=== PATIENT | female | born 1980 | race Caucasian/White ===

== ENCOUNTER 2018-01-06 15:04 | Outpatient (CLI) | payer OTHER ==
--- NOTE | 2018-01-06 16:49 | ULT ---
RIGHT BREAST LIMITED ULTRASOUND: 01/06/18 Patient presents with an axillary palpable finding. The region of the palpable finding in the right a xilla was evaluated with ultrasound. No solid or cystic mass. No abnormal fluid collection. IMPRESSION: Unremarkable right axillary ultrasound in the region of palpable concern. If the patient develops any new palpable finding, followup ultrasound study of that region should be considered. Consider annual baseline screening mammography between now and age 40 depending upon risk factors. POS: OFF
== END 2018-01-06 15:05 | disposition home or self-care (01) ==
LOC: BICULT 15:04
PROVIDERS: ATTEND Family Medicine
DX: R22.9 Localized swelling, mass and lump, unspecified (principal)

== ENCOUNTER 2025-02-19 09:00 | Outpatient (CLI) | payer OTHER | END 2025-02-19 09:01 | disposition home or self-care (01) | LOC: BICCT 09:00 | PROVIDERS: ATTEND Physician Assistant Medical | DX: Z13.6 Encounter for screening for cardiovascular disorders (principal); E78.2 Mixed hyperlipidemia; I25.10 Atherosclerotic heart disease of native coronary artery without angina pectoris | CPT/HCPCS: 75571 ==